=== PATIENT | male | born 1980 | race Caucasian/White ===

== ENCOUNTER 2016-08-09 19:46 | Emergency (ER) | payer MEDICAID ==
[~2016-08-09] VITALS: Ht 177.8 cm; Wt 72.6 kg
[2016-08-09] MEDS ORDERED: IV SET PRIMARY 1 EA INFUS.SET MC ONE (20:13)
[2016-08-09] MEDS ORDERED: IV NS 0.9% 1,000 ML ONE ×2 (20:13→21:19)
[2016-08-09] MEDS ORDERED: LORAZEPAM INJ 2 MG/ML VIAL ONE (20:14)
[2016-08-09 20:17] LABS: BASOPHILS # (AUTO) 0.2 /CMM (0.0-0.2); DIFF TOTAL % 100 %; EOSINOPHILS # (AUTO) 0.1 /CMM (0.0-0.7); EOSINOPHILS % (AUTO) 1.4 % (0.0-6.0); HEMATOCRIT 49 % (39-51); HEMOGLOBIN 16.6 g/dL (13.5-17.5); LYMPHOCYTES # (AUTO) 0.8 /CMM (0.8-4.8); LYMPHOCYTES % (AUTO) 8.1 % (20.0-44.0); MEAN CORPUSCULAR HEMOGLOBIN 31 PG (26.0-33.0); MEAN CORPUSCULAR HGB CONC 34 g/dl (31.0-36.0); MEAN CORPUSCULAR VOLUME 90 fL (80-96); MONOCYTES # (AUTO) 0.9 /CMM (0.1-1.30); NEUTROPHILS # (AUTO) 7.8 /CMM (1.8-8.9); NEUTROPHILS % (AUTO) 79.5 % (43.0-81.0); PLATELET COUNT (AUTO) 345 /CMM (150-450); WHITE BLOOD COUNT (AUTO) 9.8 K/uL (4.3-11.0)
[2016-08-09] MEDS: IV NS 0.9% 1,000 ML BAG IV ONE ×2 (20:21→21:24)
[2016-08-09] MEDS: LORAZEPAM INJ 2 MG/ML VIAL IVP ONE (20:21)
[2016-08-09 20:26] LABS: CALCIUM, SERUM 8.8 mg/dL (8.5-10.1); CREATININE 1.1 mg/dL (0.6-1.3); POTASSIUM 3.8 mmol/L (3.5-5.1)
[2016-08-09] MEDS ORDERED: ONDANSETRON HCL/PF 4 MG/2 ML VIAL ONE (21:41)
[2016-08-09] MEDS ORDERED: MAG HYDROX/AL HYDROX/SIMETH 30 ML UDC ONE (21:41)
[2016-08-09] MEDS ORDERED: FAMOTIDINE/PF INJ 20 MG/2 ML VIAL IV ONE (21:41)
[2016-08-09] MEDS: ONDANSETRON HCL/PF 4 MG/2 ML VIAL IVP ONE (21:42)
[2016-08-09] MEDS: FAMOTIDINE/PF INJ 20 MG/2 ML VIAL IV ONE (21:44)
[2016-08-09] MEDS: MAG HYDROX/AL HYDROX/SIMETH 30 ML UDC PO ONE (21:45)
[2016-08-09] MEDS ORDERED: IBUPROFEN 600 MG TABLET PO ONE (22:04)
[2016-08-09] MEDS: IBUPROFEN 600 MG TABLET PO ONE (22:10)
[2016-08-09 22:37] VITALS: BP 117/69
== END 2016-08-09 22:38 | disposition home or self-care (01) ==
LOC: ER 19:55
DX: F10.129 Alcohol abuse with intoxication, unspecified (principal); Z88.0 Allergy status to penicillin; F17.210 Nicotine dependence, cigarettes, uncomplicated
CPT/HCPCS: 36415; 80048-TC; 85025-TC; A4606; G0480; J2060; J2405; J3490; J7030; Z7610